=== PATIENT | female | born 1990 | race American Indian/Alaskan Native ===

== ENCOUNTER 2017-02-25 04:43 | Emergency (ER) | payer SELFPAY ==
[2017-02-25 05:45] LABS: Basophils % (Auto) 0.7 % (0.0-1.8); Eosinophils % (Auto) 5.8 % (0.0-4.3); Hematocrit 38.1 % (30.3-42.9); Hemoglobin 13.6 gm/dl (10.1-14.3); Mean Corpuscular HGB Conc 36 % (30-34); Mean Corpuscular Hemoglobin 33 pg (28-32); Mean Corpuscular Volume 94 fl (79-97); Platelet Count 342 K/mm3 (140-440); Red Blood Count 4.07 M/mm3 (3.65-5.03); Red Cell Distribution Width 14.2 % (13.2-15.2); White Blood Count 8.8 K/mm3 (4.5-11.0)
[2017-02-25 05:52] LABS: Bacteria,Urine 2+ /HPF (Negative); Bilirubin,Urine NEG (Negative); Blood,Urine NEG (Negative); Ketones,Urine NEG (Negative); Leukocyte Esterase,Urine MOD (Negative); Mucus,Urine 1+ /HPF; Nitrite,Urine NEG (Negative); Protein,Urine <15 mg/dL mg/dL (Negative); Urobilinogen,Urine < 2.0 mg/dL (<2.0)
--- NOTE | 2017-02-25 06:16 | Emergency Department Report ---
ED General Adult HPI - General Chief complaint: Abdominal Pain Stated complaint: STOMACH PAIN Time Seen by Provider: 02/25/17 06:15 Source: patient Mode of arrival: Ambulatory Limitations: No Limitations - History of Present Illness Initial comments: The patient complains of pelvic/suprapubic pain for 4 days. She states this is associated with the vaginal discharge. She denies a history of prior PID. She' s had no fever or chills. She is not currently nauseated. She does not complain of dysuria nor diarrhea nor any change in her bowel habits. -: days(s) Location: pelvis Radiation: non-radiation Quality: aching Consistency: intermittent, now resolved Improves with: none Worsens with: none Associated Symptoms: denies other symptoms Treatments Prior to Arrival: none - Related Data Home Medications Medication Instructions Recorded Confirmed Last Taken ALBUTEROL NEB's [Proventil 0.083% 2.5 mg INHALATION PRN PRN 08/25/16 08/25/16 Unknown NEBS] Previous Rx's Medication Instructions Recorded Last Taken Type predniSONE [Deltasone] 20 mg PO QDAY #5 tab 08/25/16 Unknown Rx metroNIDAZOLE [Metrogel 1%] 1 applicatio TP QDAY #60 gel..gram. 02/25/17 Unknown Rx Allergies Allergy/AdvReac Type Severity Reaction Status Date / Time No Known Allergies Allergy Verified 08/25/16 02:21 ED Review of Systems ROS: Stated complaint: STOMACH PAIN Other details as noted in HPI Constitutional: denies: chills, fever Eyes: denies: eye pain, eye discharge, vision change ENT: denies: ear pain, throat pain Respiratory: denies: cough, shortness of breath, wheezing Cardiovascular: denies: chest pain, palpitations Endocrine: no symptoms reported Gastrointestinal: denies: abdominal pain, nausea, diarrhea Genitourinary: as per HPI, discharge. denies: urgency, dysuria Musculoskeletal: denies: back pain, joint swelling, arthralgia Skin: denies: rash, lesions Neurological: denies: headache, weakness, paresthesias Psychiatric: denies: anxiety, depression Hematological/Lymphatic: denies: easy bleeding, easy bruising ED Past Medical Hx - Past Medical History Previous Medical History?: Yes Hx Asthma: Yes - Surgical History Past Surgical History?: No - Social History Smoking Status: Current Every Day Smoker Substance Use Type: Alcohol - Medications Home Medications: Home Medications Medication Instructions Recorded Confirmed Last Taken Type ALBUTEROL NEB's [Proventil 0.083% 2.5 mg INHALATION PRN PRN 08/25/16 08/25/16 Unknown History NEBS] predniSONE [Deltasone] 20 mg PO QDAY #5 tab 08/25/16 Unknown Rx metroNIDAZOLE [Metrogel 1%] 1 applicatio TP QDAY #60 gel..gram. 02/25/17 Unknown Rx ED Physical Exam - General Limitations: No Limitations General appearance: alert, in no apparent distress - Head Head exam: Present: atraumatic, normocephalic - Eye Eye exam: Present: normal appearance, PERRL, EOMI. Absent: scleral icterus - ENT ENT exam: Present: normal exam, mucous membranes moist - Neck Neck exam: Present: normal inspection. Absent: tenderness, meningismus - Respiratory Respiratory exam: Present: normal lung sounds bilaterally. Absent: respiratory distress - Cardiovascular Cardiovascular Exam: Present: regular rate, normal rhythm. Absent: systolic murmur, diastolic murmur, rubs, gallop - GI/Abdominal GI/Abdominal exam: Present: soft, normal bowel sounds. Absent: distended, tenderness, guarding, rebound, rigid, organomegaly, mass, bruit, pulsatile mass , hernia - External exam: Present: normal external exam Speculum exam: Present: vaginal discharge, cervical discharge Bi-manual exam: Present: normal bi-manual exam - Extremities Exam Extremities exam: Present: normal inspection - Back Exam Back exam: Present: normal inspection - Neurological Exam Neurological exam: Present: alert, oriented X3, CN II-XII intact. Absent: motor sensory deficit - Psychiatric Psychiatric exam: Present: normal affect, normal mood - Skin Skin exam: Present: warm, dry, intact, normal color. Absent: rash ED Course Vital Signs 02/25/17 04:59 Temperature 98.3 F Pulse Rate 109 H Respiratory 20 Rate Blood Pressure 138/100 O2 Sat by Pulse 99 Oximetry ED Medical Decision Making - Lab Data Result diagrams: 02/25/17 05:31 02/25/17 05:31 Laboratory Results - last 24 hr 02/25/17 02/25/17 05:11 05:31 WBC 8.8 RBC 4.07 Hgb 13.6 Hct 38.1 MCV 94 MCH 33 H MCHC 36 H RDW 14.2 Plt Count 342 Lymph % (Auto) 39.1 H [place] % (Auto) 6.2 Eos % (Auto) 5.8 H Baso % (Auto) 0.7 Lymph # 3.4 [place] # 0.5 Eos # 0.5 H Baso # 0.1 Seg Neutrophils % 48.2 Seg Neutrophils # 4.2 Urine Color Yellow Urine Turbidity Slightly-cloudy Urine pH 6.0 Ur Specific [place] 1.015 Urine Protein <15 mg/dl Urine Glucose (UA) Neg Urine Ketones Neg Urine Blood Neg Urine Nitrite Neg Urine Bilirubin Neg Urine Urobilinogen < 2.0 Ur Leukocyte Esterase Mod Urine WBC (Auto) 23.0 H Urine RBC (Auto) 8.0 U Epithel Cells (Auto) 8.0 Urine Bacteria (Auto) 2+ Amorphous Crystals Few Urine Mucus 1+ Urine HCG, Qual Negative Critical care attestation.: If time is entered above; I have spent that time in minutes in the direct care of this critically ill patient, excluding procedure time. 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 Return any acute change or problem. Advil or Tylenol [id number] for pain. Prescriptions: metroNIDAZOLE [Metrogel 1%] 1 applicatio TP QDAY #60 gel..gram. Referrals: PRIMARY CARE, [Primary Care Provider] - 3-5 Days Time of Disposition: 06:41
[2017-02-25 06:29] LABS: Anion Gap 21 mmol/L; Blood Urea Nitrogen 4 mg/dL (7-17); Calcium 9.4 mg/dL (8.4-10.2); Carbon Dioxide 25 mmol/L (22-30); Chloride 100.2 mmol/L (98-107); Glucose 104 mg/dL (65-100); Potassium 3.9 mmol/L (3.6-5.0); Sodium 142 mmol/L (137-145)
[2017-02-25] MEDS ORDERED: ROCEPHIN IM ONE (06:42)
[2017-02-25] MEDS ORDERED: ZITHROMAX PO ONE (06:42)
[2017-02-25] MEDS ORDERED: XYLOCAINE 1% MPF 5 mL INFILTRATI ONE (06:42)
[2017-02-25 07:02] VITALS: BP 128/74
== END 2017-02-25 07:02 | disposition home or self-care (01) ==
LOC: ED 04:43
DX: N73.9 Female pelvic inflammatory disease, unspecified (principal); J45.909 Unspecified asthma, uncomplicated; F17.200 Nicotine dependence, unspecified, uncomplicated
CPT/HCPCS: 36415; 80048; 81001; 81025; 85025; 87086; 87210; 87591; 96372; 99284; J0696